=== PATIENT | male | born 1990 | race Caucasian/White ===

== ENCOUNTER 2016-12-08 14:04 | Emergency (ER) | payer SELFPAY ==
[~2016-12-08] VITALS: Ht 180.3 cm; Wt 79.8 kg
[~2016-12-08 14:04] MED LIST: ADVIL LIQUI-GE200 MG PO; ANAPROX DS550 MG PO; BACTRIM DS TAB1 EACH PO; IBUPROFEN800 MG PO; KETOPROFEN75 MG PO; NORCO 5-325 TA1 EACH PO; OMEPRAZOLE20 M1 PO; TYLENOL EXTRA500 MG PO; VICODIN 5-5001 EACH PO
== END 2016-12-08 14:14 | disposition home or self-care (01) ==
LOC: ED 14:04
DX: Z00.8 Encounter for other general examination (principal)

== ENCOUNTER 2017-05-28 23:03 | Emergency (ER) | payer OTHER ==
[~2017-05-28] VITALS: Ht 180.3 cm; Wt 79.8 kg
--- OUTSIDE RECORDS SUMMARY | ~2017-05-28 | XMS ---
Demographics + + + | Address | [address] | | | [place] [address] | + + + | Preferred Language | Unknown | + + + | Marital Status | Unknown | + + + | Christianity Affiliation | Unknown | + + + | Race | Unknown | + + + | Ethnic Group | Unknown | + + + Author + + + | Author | [facility] | + + + | Organization | [facility] | + + + | Address | [address] | | | [place] [address] | + + + | Phone | | + + + Care Team Providers + + + + | Care Grappler Name | Role | Phone | + + + + Unavailable | Unavailable | + + + + PROBLEMS +---------+ + + +--------+ + + | Type | Condition | ICD9-CM | [id number] | Onset | Condition | SNOMED | | | | Code | Code | Dates | Status | Code | +---------+ + + +--------+ + + | Problem | Follow up | Z09 | | | Active | [id number] | +---------+ + + +--------+ + + | Problem | Wellness | Z00.00 | | | Active | [id number] | | | examinatio | | | | | 83877 | | | n | | | | | | +---------+ + + +--------+ + + ALLERGIES + + + + +---------+ | Substance | Reaction | Event Type | Date | Status | + + + + +---------+ | N.K.D.A. | Unknown | Non Drug | Nov, | Unknown | | | | Allergy | | | + + + + +---------+ SOCIAL HISTORY No smoking Hx information available PLAN OF CARE + +---------+ | Activity | Details | + +---------+ +---+ | | +---+ + + + | Follow Up | as scheduled with PCP Reason:null | + + + VITAL SIGNS + + + + | Height | 71 in | 2016-12-08 | + + + + | Weight | 160.7 lbs | 2016-12-08 | + + + + | BMI | 22.41 kg/m2 | 2016-12-08 | + + + + | Temperature | 98.5 degrees Fahrenheit | 2016-12-08 | + + + + | Heart Rate | 57 /min | 2016-12-08 | + + + + | Blood pressure systolic | 129 mm Hg | 2016-12-08 | + + + + | Blood pressure diastolic | 79 mm Hg | 2016-12-08 | + + + + MEDICATIONS + + + + + + + +--------+ | Medicati | Instruct | Dosage | Frequenc | Start | End Date | Duration | Status | | on | ions | | y | Date | | | | + + + + + + + +--------+ | Gabapent | Orally | 1-2 | | Nov, | | 5 day(s) | Active | | in 100 | as | capsules | | 2016 | | | | | mg | directed | at | | | | | | | | | bedtime | | | | | | + + + + + + + +--------+ | Tylenol | Orally | 1 tablet | 6h | | | | Active | | 325 MG | every 6 | as | | | | | | | | hrs | needed | | | | | | + + + + + + + +--------+ | Valacycl | Orally | 1 tablet | 8h | Nov, | Nov, | 7 days | Active | | ovir HCl | tid | | | 2016 | 2016 | | | | 1 GM | | | | | | | | + + + + + + + +--------+ | Ibuprofe | Orally | 1 tablet | 6h | | | | Active | | n 200 MG | every 6 | as | | | | | | | | hrs | needed | | | | | | + + + + + + + +--------+ RESULTS No Results PROCEDURES + + + + + | Procedure | Date Ordered | Related Diagnosis | Body Site | + + + + + | Est Level III | December 08, 2016 | | | | Intermediate | | | | + + + + + IMMUNIZATIONS No Known Immunizations"
--- OUTSIDE RECORDS SUMMARY | ~2017-05-28 | XMS ---
Demographics + + + | Address | [address] | | | [place] [address] | + + + | Preferred Language | Unknown | + + + | Marital Status | Unknown | + + + | Spiritism Affiliation | Unknown | + + + | Race | Unknown | + + + | Ethnic Group | Unknown | + + + Author + + + | Author | [facility] | + + + | Organization | [facility] | + + + | Address | [address] | | | [place] [address] | + + + | Phone | | + + + Care Team Providers + + + + | Care Cannon Crewmember Name | Role | Phone | + + + + Unavailable | Unavailable | + + + + PROBLEMS +---------+ + + +--------+ + + | Type | Condition | ICD9-CM | [id number] | Onset | Condition | SNOMED | | | | Code | Code | Dates | Status | Code | +---------+ + + +--------+ + + | Problem | Follow up | Z09 | | | Active | [id number] | +---------+ + + +--------+ + + | Problem | Wellness | Z00.00 | | | Active | [id number] | | | examinatio | | | | | [address] | | | n | | | | | | +---------+ + + +--------+ + + ALLERGIES No Known Allergies SOCIAL HISTORY Never Assessed PLAN OF CARE + +---------+ | Activity | Details | + +---------+ +---+ | | +---+ + + + | Follow Up | prn Reason:null | + + + VITAL SIGNS + + + + | Height | 71 in | 2017-02-14 | + + + + | Weight | 161.2 lbs | 2017-02-14 | + + + + | BMI | 22.48 kg/m2 | 2017-02-14 | + + + + | Temperature | 98.4 degrees Fahrenheit | 2017-02-14 | + + + + | Heart Rate | 71 /min | 2017-02-14 | + + + + | Blood pressure systolic | 132 mm Hg | 2017-02-14 | + + + + | Blood pressure diastolic | 75 mm Hg | 2017-02-14 | + + + + MEDICATIONS No Known Medications RESULTS + +--------+ + + | Name | Result | Date | Reference Range | + +--------+ + + | Urinalysis, Dip | | 2017-02-14 | | | (IH) | | | | + +--------+ + + | Specific [place] | 1.025 | | | + +--------+ + + | pH | 5 | | | + +--------+ + + | Leukocytes | Neg | | | + +--------+ + + | Nitrite, Urine | Neg | | | + +--------+ + + | Protein | Neg | | | + +--------+ + + | Glucose | Norm | | | + +--------+ + + | Ketones | Neg | | | + +--------+ + + | Urobilingen, | Norm | | | | Semi-Qn | | | | + +--------+ + + | Bilirubin | Neg | | | + +--------+ + + | Blood Hemoglobin | Neg | | | | (BLD) | | | | + +--------+ + + | Hepatitis A,B,C | | 2017-02-14 | | | Panel | | | | + +--------+ + + | HBSAG | | | | + +--------+ + + | HEPATITIS B VIRUS | | | | | SURFACE ANTIBODY, | | | | | POST-VACCINATION | | | | + +--------+ + + | HEPATITIS A VIRUS | | | | | ANTIBODY, IGM | | | | + +--------+ + + | HEPATITIS B CORE | | | | | ANTIBODIES, TOTAL | | | | + +--------+ + + | HEPATITIS C VIRUS | | | | | ANTIBODY | | | | + +--------+ + + | INTERP | | | | + +--------+ + + | HIV-1+2 | | 2017-02-14 | | + +--------+ + + | Multi-Drug Screen | | 2017-02-14 | | | (i-Cup) | | | | + +--------+ + + | BAR | Neg | | | + +--------+ + + | BZO | Neg | | | + +--------+ + + | OPI | Neg | | | + +--------+ + + | MET | Neg | | | + +--------+ + + | MDMA | Neg | | | + +--------+ + + | OXY | Neg | | | + +--------+ + + | AMP | Neg | | | + +--------+ + + | CAMI | Neg | | | + +--------+ + + | MTD | Neg | | | + +--------+ + + | THC | Neg | | | + +--------+ + + | Temp Range | Norm | | | + +--------+ + + PROCEDURES + + +--------+ + | Procedure | Date Ordered | Result | Body Site | + + +--------+ + | Multi-Drug screen | Feb 14, 2017 | | | | any number | | | | + + +--------+ + | LAB URINALYSIS (DIP | Feb 14, 2017 | | | | STICK ONLY | | | | + + +--------+ + | MMA/ODOT/PRE | Feb 14, 2017 | | | | EMPLOYMENT | | | | + + +--------+ + IMMUNIZATIONS No Known Immunizations MEDICAL (GENERAL) HISTORY + + +------+ | Type | Description | Date | + + +------+ | Medical History | hernia | | + + +------+"
[2017-05-28] MEDS ORDERED: CEPHALEXIN500 MG PO (23:42)
[2017-05-28] MEDS ORDERED: TRAMADOL HCL50 MG PO (23:42)
== END 2017-05-29 | disposition home or self-care (01) ==
LOC: ED 23:03
DX: K08.89 Other specified disorders of teeth and supporting structures (principal); F17.200 Nicotine dependence, unspecified, uncomplicated
CPT/HCPCS: 99283

== ENCOUNTER 2019-05-25 17:32 | Emergency (ER) | payer OTHER ==
[~2019-05-25] VITALS: Ht 182.9 cm; Wt 83.0 kg
--- OUTSIDE RECORDS SUMMARY | ~2019-05-25 | XMS | Clinical Summary ---
Demographics + + + | Address | [address] | | | [place] [address] | + + + | Home Phone | | + + + | Preferred Language | Unknown | + + + | Marital Status | Single | + + + | Mandaen Affiliation | 1013 | + + + | Race | Unknown | + + + | Ethnic Group | Unknown | + + + Author + + + | Author | [facility] | | | and [place] | + + + | Organization | [facility] | | | and [place] | + + + | Address | Unknown | + + + | Phone | Unavailable | + + + Support + + +---------+ + | Name | Relationship | Address | Phone | + + +---------+ + | Alia Sanchez | ECON | Unknown | | + + +---------+ + Care Team Providers + +------+ + | Care Lead Systems Architect Name | Role | Phone | + +------+ + | No, Physician | PCP | Unavailable | + +------+ + Allergies No Known Allergies Medications + + + +---------+------+------+-------+ | Medication | Sig | Dispensed | Refills | Star | End | Statu | | | | | | t | Date | s | | | | | | Date | | | + + + +---------+------+------+-------+ | ibuprofen | Take 800 mg by mouth | | 0 | | | Activ | | (ADVIL,MOTRIN) 800 | Twice daily as | | | | | e | | MG tablet | needed for Pain. | | | | | | + + + +---------+------+------+-------+ | naproxen | Take 250 mg by mouth | | 0 | | | Activ | | (NAPROSYN) 250 mg | 2 times daily (with | | | | | e | | tablet | breakfast & | | | | | | | | dinner). | | | | | | + + + +---------+------+------+-------+ | | Take 1-2 tablets by | 15 | 0 | 07/0 | | Activ | | HYDROcodone-acetamin | mouth EVERY 4 TO 6 | tablet | | 6/20 | | e | | ophen (NORCO) 5-325 | HOURS NEEDED for | | | 15 | | | | mg per tablet | Pain. | | | | | | + + + +---------+------+------+-------+ | cyclobenzaprine | Take 1 tablet by | 21 | 0 | 07/0 | | Activ | | (FLEXERIL) 10 mg | mouth 3 times daily | tablet | | 6/20 | | e | | tablet | as needed for Muscle | | | 15 | | | | | spasms. | | | | | | + + + +---------+------+------+-------+ | cyclobenzaprine | Take 1 tablet by | 21 | 0 | 07/0 | | Activ | | (FLEXERIL) 10 mg | mouth 3 times daily | tablet | | 6/20 | | e | | tablet | as needed for Muscle | | | 15 | | | | | spasms. | | | | | | + + + +---------+------+------+-------+ | cyclobenzaprine | Take 1 tablet by | 21 | 0 | 07/0 | | Activ | | (FLEXERIL) 10 mg | mouth 3 times daily | tablet | | 6/20 | | e | | tablet | as needed for Muscle | | | 15 | | | | | spasms. | | | | | | + + + +---------+------+------+-------+ Active Problems Not on file Social History + + + +--------+------+ | Tobacco Use | Types | Packs/Day | Years | Date | | | | | Used | | + + + +--------+------+ | Current Every Day | Cigarettes | | 10 | | | Smoker | | | | | + + + +--------+------+ + + + | Sex Assigned at | Date Recorded | | | | + + + | Not on file | | + + + + + + + | Job Start Date | Occupation | Industry | + + + + | Not on file | Not on file | Not on file | + + + + + + + + | Travel History | Travel Start | Travel End | + + + + + + | No recent travel history available. | + + Last Filed Vital Signs + + + + + | Vital Sign | Reading | Time Taken | Comments | + + + + + | Blood Pressure | 105/75 | 12/05/2014 7:22 PM | | | | | PDT | | + + + + + | Pulse | 60 | 12/05/2014 7:22 PM | | | | | PDT | | + + + + + | Temperature | 36.9 C (98.5 F) | 12/05/2014 7:22 PM | | | | | PDT | | + + + + + | Respiratory Rate | 16 | 12/05/2014 7:22 PM | | | | | PDT | | + + + + + | Oxygen Saturation | - | - | | + + + + + | Inhaled Oxygen | - | - | | | Concentration | | | | + + + + + | Weight | 75.8 kg (167 lb) | 12/05/2014 7:22 PM | | | | | PDT | | + + + + + | Height | 182.9 cm (6') | 12/05/2014 7:22 PM | | | | | PDT | | + + + + + | Body Mass Index | 22.65 | 12/05/2014 7:22 PM | | | | | PDT | | + + + + + Plan of Treatment + + + + + | Health Maintenance | Due Date | Last Done | Comments | + + + + + | Vaccine: | | | | | Dtap/Tdap/Td (1 - | 3 | | | | Tdap) | | | | + + + + + | Vaccine: Influenza | | | | | (#1) | 9 | | | + + + + + Results Not on filefrom Last 3 Months Advance Directives + + + + + | Type | Date Recorded | Patient | Explanation | | | | Gravity Meter Observer | | + + + + + | Power of | | | | | Ship Runner | | | | + + + + + | Advance | 12/05/2014 8:02 | | | | Directive | PM | | | + + + + +"
--- OUTSIDE RECORDS SUMMARY | ~2019-05-25 | XMS | Clinical Summary ---
Demographics + + + | Address | [address] | | | [place] [address] | + + + | Home Phone | | + + + | Preferred Language | Unknown | + + + | Marital Status | Single | + + + | Jewish Affiliation | 1013 | + + + | Race | Unknown | + + + | Ethnic Group | Unknown | + + + Author + + + | Author | [facility] | | | and [place] | + + + | Organization | [facility] | | | and [place] [...] Team Providers + +------+ + | Care Power Shovel Operator Helper Name | Role | Phone | + [...] Patient | Explanation | | | | Paver | | + + + + + | Power of | | | | | Sports Official | | | | + + + + + | Advance | 12/05/2014 8:02 | | | | Directive | PM | | | + + + + +"
--- OUTSIDE RECORDS SUMMARY | ~2019-05-25 | XMS | Encounter Summary ---
Demographics + + + | Address | [address] | | | [place] [address] | + + + | Home Phone | | + + + | Preferred Language | Unknown | + + + | Marital Status | Single | + + + | Spiritism Affiliation | 1013 | + + + | Race | Unknown | + + + | Ethnic Group | Unknown | + + + Author + + + | Author | [facility] | | | and [place] | + + + | Organization | [facility] | | | and [place] [...] Team Providers + +------+ + | Care Job Molder Name | Role | Phone | + +------+ + | No, Physician | PCP | Unavailable | + +------+ + Reason for Visit + + + | Reason | Comments | + + + | Shoulder Pain | | + + + Encounter Details +--------+ + + + + | Date | Type | Department | Care Team | Description | +--------+ + + + + | 12/05/ | Emergency | [facility] | Corwin Caballero | Rotator cuff | | 2015 | | [facility] | Deshawn Harrington MD | (capsule) sprain and | | | | CENTER [address] | [address] | strain, right, | | | | [place], [place] | [place], [place] | subsequent encounter | | | | [phone] | [id number] | (Primary Dx) | | | | [phone] | | | +--------+ + + + + Social History + + + +--------+------+ | [...] recent travel history available. | + + documented as of this encounter Last Filed Vital Signs + + + [...] | | + + + + + documented in this encounter Discharge Instructions Instructions Corwin Caballero MD - 12/05/2014Return for severe worsening sympto ms. Follow up primary care physician. You may need an MRI of her shoulder to fully describ e what going on. documented in this encounter Medications at Time of Discharge + + + +---------+ + + | Medication | Sig | Dispensed | Refills | Start | End Date | | | | | | Date | | + + + +---------+ + + | cyclobenzaprine | Take 1 tablet by | 21 | 0 | 12/06/19 | | | (FLEXERIL) 10 mg | mouth 3 times daily | tablet | | 15 | | | tablet | as needed for Muscle | | | | | | | spasms. | | | | | + + + +---------+ + + | cyclobenzaprine | Take 1 tablet by | 21 | 0 | 12/06/19 | | | (FLEXERIL) 10 mg | mouth 3 times daily | tablet | | 15 | | | tablet | as needed for Muscle | | | | | | | spasms. | | | | | + + + +---------+ + + | cyclobenzaprine | Take 1 tablet by | 21 | 0 | 12/06/19 | | | (FLEXERIL) 10 mg | mouth 3 times daily | tablet | | 15 | | | tablet | as needed for Muscle | | | | | | | spasms. | | | | | + + + +---------+ + + | | Take 1-2 tablets by | 15 | 0 | 12/06/19 | | | HYDROcodone-acetamin | mouth EVERY 4 TO 6 | tablet | | 15 | | | ophen (NORCO) 5-325 | HOURS NEEDED for | | | | | | mg per tablet | Pain. | | | | | + + + +---------+ + + | ibuprofen | Take 800 mg by mouth | | 0 | | | | (ADVIL,MOTRIN) 800 | Twice daily as | | | | | | MG tablet | needed for Pain. | | | | | + + + +---------+ + + | naproxen | Take 250 mg by mouth | | 0 | | | | (NAPROSYN) 250 mg | 2 times daily (with | | | | | | tablet | breakfast & | | | | | | | dinner). | | | | | + + + +---------+ + + documented as of this encounter Plan of Treatment Not on filedocumented as of this encounter Visit Diagnoses + + | Diagnosis | + + | Rotator cuff (capsule) sprain and strain, right, subsequent encounter - Primary | + + documented in this encounter Administered Medications + + + +-------+------+------+ | Medication Order | MAR | Action | Dose | Rate | Site | | | Action | Date | | | | + + + +-------+------+------+ | cyclobenzaprine (FLEXARIL) | Dispense | 12/06/19 | 10 mg | | | | tablet (ER Prepack) 10 mg 10 mg, | to Home | 15 7:58 | | | | | Oral, ONCE, 12/05/14 at 2000, | | PM PDT | | | | | For 1 dose, Take 1 tablet every 8 | | | | | | | hours prn muscle spasm Dispense | | | | | | | for home use., | | | | | | + + + +-------+------+------+ +---+---+ | | | +---+---+ + + + + +---+---+ | HYDROcodone-acetaminophen | Dispense | 12/06/19 | 1 tablet | | | | (NORCO) 5-325 mg per tablet (ER | to Home | 15 7:58 | | | | | Prepack) 1-2 tablet 1-2 tablet, | | PM PDT | | | | | Oral, EVERY 6 HOURS PRN, Moderate | | | | | | | Pain, Starting 12/05/14 at | | | | | | | 1934, Take 1-2 tablet(s) every | | | | | | | 4-6 hours if needed. Dispense | | | | | | | for home use. Enter order number | | | | | | | on MAR when dispensing., | | | | | | + + + + +---+---+ +---+---+ | | | +---+---+ documented in this encounter"
--- OUTSIDE RECORDS SUMMARY | ~2019-05-25 | XMS | Encounter Summary ---
Demographics + + + | Address | [address] | | | [place] [address] | + + + | Home Phone | | + + + | Preferred Language | Unknown | + + + | Marital Status | Single | + + + | Yarsani Affiliation | 1013 | + + + | Race | Unknown | + + + | Ethnic Group | Unknown | + + + Author + + + | Author | [facility] | | | and [place]jana | + + + | Organization | [facility] | | | and [place] [...] Team Providers + +------+ + | Care Nursing Program Manager Name | Role | Phone | + [...] + + | 12/05/ | Emergency | [facility] | Corwin Caballero | Rotator cuff | | 2015 | | [facility] | Deshawn Harrington MD | (capsule) sprain and | | | | CENTER [address] | [address] | strain, right, | | | | [place], [place] | [place], [place] | subsequent encounter | | | | [phone] | [id number] | (Primary Dx) | | | | [phone] | | | +--------+ + + + [...]
[~2019-05-25 17:32] MED LIST changes: +CEPHALEXIN500 MG PO; +TRAMADOL HCL50 MG PO
--- OUTSIDE RECORDS SUMMARY | 2019-05-25 17:34 | XMS ---
PreManage Notification: BLAS NEVAREZ Security It Infrastructure Manager Events No recent Security Events currently on file CRITERIA MET - Group Notification CARE PROVIDERS There are no care providers on record at this time. Jorgito has no Care Guidelines for this patient. Ad VISIT COUNT (12 MO.) 1 EVELINE Pedraza TOTAL 1 NOTE: Visits indicate total known visits. ED/UCC VISIT TRACKING (12 MO.) 05/25/2019 17:32 EVELINE Gonzalez [place] TYPE: Emergency COMPLAINT: - JAW INJ INPATIENT VISIT TRACKING (12 MO.) No inpatient visits to display in this time frame [email or web address]
[2019-05-25] MEDS ORDERED: NORCO 5-325 TA1 EACH PO (18:40)
[2019-05-25] MEDS ORDERED: AMOXICILLIN500 MG PO (18:40)
== END 2019-05-25 19:06 | disposition home or self-care (01) ==
LOC: ED 17:32
DX: S02.641A Fracture of ramus of right mandible, initial encounter for closed fracture (principal); W50.0XXA Accidental hit or strike by another person, initial encounter; F17.200 Nicotine dependence, unspecified, uncomplicated
CPT/HCPCS: 70110; 99283-25; 99406; A9270

== ENCOUNTER 2024-02-02 21:03 | Emergency (ER) | payer SELFPAY ==
[~2024-02-02] VITALS: Ht 182.9 cm; Wt 86.7 kg
[~2024-02-02 21:03] MED LIST changes: +AMOXICILLIN500 MG PO
--- OUTSIDE RECORDS SUMMARY | 2024-02-02 21:09 | XMS ---
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 EPierce VISIT COUNT (12 MO.) 1 EVELINE Pedraza TOTAL 1 NOTE: Visits indicate total known visits. ED/UCC VISIT TRACKING (12 MO.) 02/02/2024 21:03 EVELINE Gonzalez [place] TYPE: Emergency COMPLAINT: - DENTAL PROBLEM INPATIENT VISIT TRACKING (12 MO.) No inpatient visits to display in this time frame [id number]
[2024-02-02] MEDS ORDERED: AMOX TR-K CLV1 EAC1 PO (22:22)
[2024-02-02] MEDS ORDERED: TRAMADOL HCL50 MG PO (22:22)
[2024-02-02] MEDS ORDERED: AMOXICILLIN/CLAVULANATE K 875 MG HOME.PACK PO ONE (22:30)
[2024-02-02] MEDS ORDERED: TRAMADOL HCL 50 MG HOME.PACK PO ONE (22:30)
[2024-02-02 22:43] VITALS: BP 140/93
== END 2024-02-02 22:45 | disposition home or self-care (01) ==
LOC: ED 21:03
DX: K04.7 Periapical abscess without sinus (principal); F17.200 Nicotine dependence, unspecified, uncomplicated
CPT/HCPCS: A9270